=== PATIENT | male | born 1960 | race Caucasian/White ===

== ENCOUNTER → 2017-01-17 | Outpatient (CLI) | payer BC ==
[~2017-01-17] MED LIST: ADVIL200 M3 PO; ALPRAZOLAM0.5 MG PO; COZAAR PO
--- NOTE | ~2017-01-17 | US6 ---
[facility] A Service of [facility] RADIOLOGY TEXT RESULTS PATIENT: GLEN RIVERA JR LOCATION: [facility] : 58 UNIT #: [id number] AGE: [address]: Israel Anand MD SEX: M ORDER DR: [id number] [place], [place] [address] [id number] O MR#: [id number] Acc #: [id number] NAME: GLEN RIVERA : 1960 SEX: M STUDY DATE/TIME: 01/17/2017 8:06 UNIT: [facility] ROOM: STUDY DESCRIPTION: US Abdominal Limited Attending Physician: Israel Anand M.D. Referring Physician: Israel Anand M.D. Ordering Physician: Israel Anand M.D. Primary Care Physician: Wesly Alberto M.D. MEDICAL IMAGING REPORT This report is preliminary unless electronic signature is present EXAM Right upper quadrant abdominal ultrasound. INDICATIONS Upper abdominal pain. Chronic upper abdominal pain. PROCEDURE Hobbs-scale and Doppler imaging right upper quadrant of the abdomen. COMPARISON None. FINDINGS Visualized portions of the pancreas are unremarkable. Liver is difficult to evaluate on this study but does have increased echotexture compared with the right kidney. Liver measures 17 cm. Right kidney measures 11.6 cm and is unremarkable. Submitted images of the gallbladder unremarkable. Common duct measures 4-5 mm. IMPRESSION 1. Increased liver echotexture in keeping with steatosis. 2. Difficult evaluation of the right upper quadrant of the abdomen but no definite other abnormality. Dictated by... Rinku Damon M.D. THIS IS AN ELECTRONICALLY VERIFIED REPORT Rinku Damon M.D. at 01/21/2017 11:07 AM EED/odilia TD: 01/17/2017 11:45 JOB #: [id number] [facility] A Service [facility] RADIOLOGY TEXT RESULTS PATIENT: GLEN RIVERA JR LOCATION: [facility] : 58 UNIT #: [id number] AGE: [address]: Israel Anand MD SEX: M ORDER DR: MEDICAL IMAGING REPORT Page 1 of 1 COPY
--- NOTE | ~2017-01-17 | NM22 ---
[facility] A Service of [facility] RADIOLOGY TEXT RESULTS PATIENT: GLEN RIVERA JR LOCATION: [facility] : 58 UNIT #: [id number] AGE: [address]: Israel Anand MD SEX: M ORDER DR: [id number] [facility] [address]. [place], [place] [address] [id number] O MR#: [id number] Acc #: [id number] NAME: GLEN RIVERA : 1960 SEX: M STUDY DATE/TIME: 01/17/2017 8:38 UNIT: [facility] ROOM: STUDY DESCRIPTION: MT Hepatobiliary W GB Pharm Attending Physician: Israel Anand M.D. Referring Physician: Israel Anand M.D. Ordering Physician: Israel Anand M.D. Primary Care Physician: Wesly Alberto M.D. MEDICAL IMAGING REPORT This report is preliminary unless electronic signature is present EXAM HIDA scan with Kinevac CCK 01/17/2017 HISTORY Right upper quadrant abdominal pain and epigastric pain radiating to the back for 30 years. FINDINGS The patient received an intravenous injection of 5.84 mCi of technetium 99m tagged Choletec for hepatobiliary imaging. One hour following the injection of the radiopharmaceutical the patient received an intravenous injection of 2 mcg of Kinevac. There is homogeneous distribution of the radiotracer throughout the liver. Gallbladder activity was seen by 45 minutes postinjection of the radiopharmaceutical. Following Kinevac injection the gallbladder ejection fraction was 84.2% (normal is greater than 30%). IMPRESSION Normal HIDA scan with gallbladder ejection fraction of 84.2%. Dictated by... Michael Myrick M.D. THIS IS AN ELECTRONICALLY VERIFIED REPORT Michael Myrick M.D. at 01/18/2017 7:18 AM TY/nikolay TD: 01/17/2017 14:03 JOB #: [id number] MEDICAL IMAGING REPORT Page 1 of 1 COPY
== END | disposition home or self-care (01) ==
LOC: CGUS 07:17
DX: R10.13 Epigastric pain (principal); K76.0 Fatty (change of) liver, not elsewhere classified
CPT/HCPCS: 76705; 78227; A9537; J2805